=== PATIENT | female | born 2000 | race Caucasian/White ===

== ENCOUNTER 2021-03-26 16:11 | Emergency (ER) | payer MEDICAID ==
[2021-03-26 17:25] LABS: HEMOGLOBIN 12.4 gm/dl (12.3-15.3); RED BLOOD COUNT 4.86 M/UL (4.00-5.10); WHITE BLOOD COUNT 7.7 K/UL (4.5-11.0)
[2021-03-26 18:07] LABS: BUN/CREATININE RATIO 19 (0-10)
[2021-03-26] MEDS ORDERED: CEFUROXIME500 MG PO (18:41)
== END 2021-03-26 18:54 | disposition home or self-care (01) ==
LOC: ER1 16:11
PROVIDERS: Preventive Medicine Occupational Medicine
DX: N39.0 Urinary tract infection, site not specified (principal); F45.8 Other somatoform disorders
CPT/HCPCS: 80053; 81001; 84703; 85025; 86140; 87081; 87086; 87880; 99283

== ENCOUNTER 2021-08-14 11:46 | Emergency (ER) | payer OTHER ==
[~2021-08-14 11:46] MED LIST: CEFUROXIME500 MG PO
== END 2021-08-14 17:00 | disposition home or self-care (01) ==
LOC: ER1 11:46
DX: S05.12XA Contusion of eyeball and orbital tissues, left eye, initial encounter (principal); S05.11XA Contusion of eyeball and orbital tissues, right eye, initial encounter; W22.8XXA Striking against or struck by other objects, initial encounter; Y92.89 Other specified places as the place of occurrence of the external cause
CPT/HCPCS: 70486; 81001; 84703; 99284

== ENCOUNTER 2021-08-15 13:22 | Emergency (ER) | payer OTHER | END 2021-08-15 18:40 | disposition home or self-care (01) | LOC: ER1 13:22 | DX: R51.9 Headache, unspecified (principal); R58 Hemorrhage, not elsewhere classified | CPT/HCPCS: 70450; 99284 ==